=== PATIENT | male | born 1955 | race Caucasian/White ===

== ENCOUNTER 2022-09-22 11:26 | Emergency (ER) | payer OTHER, BC ==
[~2022-09-22] VITALS: Ht 182.9 cm; Wt 88.5 kg
[2022-09-22 11:37] VITALS: BP_SYST 125
--- NOTE | 2022-09-22 12:45 | NUR ---
MD MARVIN IN TRIAGE FOR MSE
--- NOTE | 2022-09-22 14:15 | NUR ---
Patient given written and verbal discharge instructions and verbalizes understanding. ER MD discussed with patient the results and treatment provided. Patient in stable condition. ID arm band removed. IV catheter removed intact and dressing applied, no active bleeding. Rx of N/A given. Patient educated on pain management and to follow up with PMD. Pain Scale 0/10. Opportunity for questions provided and answered. Medication side effect fact sheet provided. REFERRAL TO UROLOGY TO MD NASH.
[2022-09-22 14:18] VITALS: BP_SYST 127
== END 2022-09-22 14:18 | disposition home or self-care (01) ==
LOC: SED 11:26
DX: N44.2 Benign cyst of testis (principal); N45.4 Abscess of epididymis or testis; I10 Essential (primary) hypertension; Z79.899 Other long term (current) drug therapy
CPT/HCPCS: 99284